=== PATIENT | female | born 1935 | race African-American/Black ===

== ENCOUNTER 2022-03-29 16:03 | Emergency (ER) | payer MEDICARE ==
[~2022-03-29] VITALS: Ht 160 cm; Wt 75.0 kg
[2022-03-29 16:15] VITALS: BP 160/83
[2022-03-29] MEDS ORDERED: HYDR-4009 MT (23:40)
== END 2022-03-29 23:58 | disposition home or self-care (01) ==
LOC: ER 16:03
DX: M25.561 Pain in right knee (principal); I10 Essential (primary) hypertension; Z76.0 Encounter for issue of repeat prescription; H40.9 Unspecified glaucoma
CPT/HCPCS: 99281; 99283